=== PATIENT | female | born 1965 | race Caucasian/White ===

== ENCOUNTER → 2024-02-09 10:43 | Outpatient (REF) | payer BC, SELFPAY | LOC: HWWDC 10:43 | PROVIDERS: ATTENDING PHYSICIAN Internal Medicine | DX: Z12.31 Encounter for screening mammogram for malignant neoplasm of breast (principal) | CPT/HCPCS: 77063; 77067 ==

== ENCOUNTER → 2024-04-28 12:53 | Outpatient (REF) | payer BC, SELFPAY | LOC: WDC 12:53 | PROVIDERS: ATTENDING PHYSICIAN Internal Medicine | DX: R92.333 Mammographic heterogeneous density, bilateral breasts (principal) | CPT/HCPCS: 76641 ==

== ENCOUNTER → 2024-11-01 13:52 | Outpatient (REF) | payer SELFPAY | LOC: HWRAD 13:52 | PROVIDERS: ATTENDING PHYSICIAN Internal Medicine | DX: E78.5 Hyperlipidemia, unspecified (principal) | CPT/HCPCS: 75571 ==